=== PATIENT | male | born 2000 | race Caucasian/White ===

== ENCOUNTER 2025-02-26 07:19 | Emergency (ER) | payer OTHER, SELFPAY ==
[2025-02-26 07:24] VITALS: BP 136/92; PULSE 78; RESP 16; TEMP 36.7; O2SAT 99; BMI 28.7
[2025-02-26] MEDS: BUPIVACAINE 0.25% 30 ML 5 ML INJECTION (07:25)
--- NOTE | 2025-02-26 07:25 | ED.GENADULT ---
HPI - General Adult General Chief complaint: Laceration/Wound Stated complaint: Right hand index finger laceration Time Seen by Provider: 02/26/25 07:25 History of Present Illness HPI narrative: Pt reports wire coil weighing approx 100 pounds crushed his right index finger at work around 0630. Reports pain and laceration to right index finger. 24-year-old to the emergency department following injury to primarily right index finger. Did get his hand crushed by wire coiled weighing upwards of 100 lb. Says he could still feel the tip of his finger after the event. Is concerned that has finger tip; feels like it is not attached; slipping around. Throbbing pain. Right-hand dominant. Is particularly bothered by seeing his finger like that and concern of potentially losing the tip of his finger. Concerns related to lifts and when he would be able to return to that. Related Data Home Medications ?Medication ?Instructions ?Recorded ?Confirmed No Known Home Medications 02/26/25 02/26/25 Allergies Allergy/AdvReac Type Severity Reaction Status Date / Time No Known Drug Allergies Allergy Verified 02/26/25 07:26 Review of Systems Status of ROS: Reports: 6 or more systems reviewed and unremarkable except as noted in History and below [facility] Social History Smoking Status: Never smoker How often do you have a drink containing alcohol: never How often do you have six or more drinks on one occasion: Never AUDIT-C Alcohol total score: 0 Non-prescribed substance use: denies use Exam Narrative: Exam Narrative: Pleasant. Calm. In work attire. Favoring his right hand. 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 There is some dried blood about his right hand. There is general swelling particularly more so distally to the right index finger. Intact sensation. A distal semilunar subungual hematoma appears to be present. The pad of his finger looks to have split on initial exam; it appears to be superficial. He is reluctant to flex against resistance feeling that he is going to separate the skin from his finger but does not appear to give way with regard to strength. Better strength to extension of the finger though limited maybe due to pain. There is a superficial abrasion/flap of skin over the DIP dorsal surface of the 3rd finger. No other injuries apparent. Const: Vital Signs, click to edit/add: Vital Signs - 24 hr 02/26/25 07:24 Temperature 98.1 F Pulse Rate [Pulse Oximeter] 78 Respiratory Rate 16 Blood Pressure [Le ft Upper Arm] 136/92 H Pulse Oximetry 99 Oxygen Delivery Me thod Room Air Documenting provider has reviewed patient's vital signs: yes Course Vital Signs Vital signs: Initial Vital Signs Temperature 98.1 F 02/26/25 07:24 Temperature Source Temporal Artery Scan 02/26/25 07:24 Pulse Rate 78 02/26/25 07:24 Respiratory Rate 16 02/26/25 07:24 Blood Pressure 136/92 H 02/26/25 07:24 Blood Pressure Mean 106 H 02/26/25 07:24 Blood Pressure Position Sitting 02/26/25 07:24 Pulse Oximetry 99 02/26/25 07:24 Oxygen Delivery Method Room Air 02/26/25 07:24 Vital Signs Temperature 98.1 F 02/26/25 07:24 Pulse Rate 78 02/26/25 07:24 Respiratory Rate 16 02/26/25 07:24 Blood Pressure 136/92 H 02/26/25 07:24 Pulse Oximetry 99 02/26/25 07:24 Oxygen Delivery Method Room Air 02/26/25 07:24 Temperature 98.1 F 02/26/25 07:24 Pulse Rate 78 02/26/25 07:24 Respiratory Rate 16 02/26/25 07:24 Blood Pressure 136/92 H 02/26/25 07:24 Pulse Oximetry 99 02/26/25 07:24 Oxygen Delivery Method Room Air 02/26/25 07:24 Medications Administered Medications: Discontinued Medications Generic Name Dose Route Start Last Admin Trade Name Zenobia PRN Reason Stop Dose Admin Bupivacaine HCl 5 ml 02/26/25 07:39 02/26/25 07:25 Bupivacaine 0.25% 30 Ml INJECTION 02/26/25 07:40 5 ml ONCE ONE Administration Medical Decision Making MDM Narrative Medical decision making narrative: Clearly uncomfortable and we offer pain relief. He denies any allergies. I proceed with initially 3 mL of bupivacaine injected in a digital block. He does note that he still feels a good deal of pressure but with concerns of continued pain I do place another 0.5 mL a little more distal on each side of the finger. I think is actually well anesthetized as the puncture of the 2nd injections was not felt. Will be x-raying this finger for fracture; possible tuft or distal phalangeal fracture. Antibiotics I think would be indicated in that case. Further exploration once further numb and pending repair. Three-view x-ray of the right index finger independently reviewed by me is without acute bony abnormality. Radiology over-read below Indication: Trauma. Technique: Right 2nd finger radiographs, three views Comparison: None. Findings: Bones: No acute fracture or dislocation. Joint spaces: Unremarkable. Soft tissues: Soft tissue swelling of the digit with a soft tissue defect along the palmar aspect of the index finger. Impression: No acute fracture. Dictated by Asha Russo MD @ 02/26/2025 7:53:52 AM Laceration is at the level of the the DIP on the palmar surface. An avulsion laceration. Horizontal. Full dermal. Joint capsule and ligamentous and tendinous structures are not visible. 1 in in length. Excellent anesthesia achieved. After cleansing with Hibiclens water solution. I further irrigated with normal saline under pressure. Able to place 5-0 Ethilon sutures without difficulty. Very good wound approximation and control of bleeding other than scant residual ooze when manipulated. Dressed with antibiotic ointment and Band-Aid and placed a finger Stax splint for protection. See patient discharge plan for further discussion sutures out in 10 - 12 days. antibiotic ointment for 5 days and then to a dry dressing. ok to get wet but try not to soak while sutures are in. Can take up to 800 mg of ibuprofen or up to 1000 mg of acetaminophen per dose. Also elevate for comfort. I think placing a Band-Aid and some gauze wrap protected by a thick leather glove should be enough for your work. The splint though does give an added level of protection that might be reassuring. Watch for spreading redness after 2 days accompanied by heat, swelling, marked increase in pain, purulent drainage. Discharge Plan Discharge Clinical Impression: Finger avulsion, Laceration, Crush injury Patient Disposition: Home, Self-Care Condition: Improved Instructions: Finger Laceration (ED), Skin Avulsion (ED) Additional Instructions: sutures out in 10 - 12 days. antibiotic ointment for 5 days and then to a dry dressing. ok to get wet but try not to soak while sutures are in. Can take up to 800 mg of ibuprofen or up to 1000 mg of acetaminophen per dose. Also elevate for comfort. I think placing a Band-Aid and some gauze wrap protected by a thick leather glove should be enough for your work. The splint though does give an added level of protection that might be reassuring. Watch for spreading redness after 2 days accompanied by heat, swelling, marked increase in pain, purulent drainage. Prescriptions: No Action No Known Home Medications Follow Up/Referrals: Provider,Not a Local [Primary Care Provider, Family Practice] Stand Alone Forms: [facility] Info Instructions
--- NOTE | 2025-02-26 07:26 | CRLHL7_ITS ---
For Patients: As a result of the Cures Act, medical imaging exams and procedure reports are released immediately into your electronic medical record. You may view this report before your referring provider. If you have questions, please contact your health care provider. Indication: Trauma. Technique: Right 2nd finger radiographs, three views Comparison: None. Findings: Bones: No acute fracture or dislocation. Joint spaces: Unremarkable. Soft tissues: Soft tissue swelling of the digit with a soft tissue defect along the palmar aspect of the index finger. Impression: No acute fracture. Dictated by Asha Russo MD @ 02/26/2025 7:53:52 AM (Electronically Signed)
== END 2025-02-26 09:20 | disposition home or self-care (01) ==
PROVIDERS: Emergency Provider Family Medicine
DX: S61.210A Laceration without foreign body of right index finger without damage to nail, initial encounter (principal); W23.0XXA Caught, crushed, jammed, or pinched between moving objects, initial encounter
CPT/HCPCS: 12001; 73140; 99283; 99284; J0665